=== PATIENT | female | born 1990 | race Caucasian/White ===

== ENCOUNTER → 2018-06-06 | Outpatient (CLI) | payer OTHER ==
[2018-06-06 10:21] VITALS: BP 143/85; PULSE 83; TEMP 97.6; BMI 41.8
--- NOTE | 2018-06-06 13:47 | P.HPOB ---
History of Present Illness H&P Date: 06/06/18 Chief Complaint: The patient is here for her routine gynecologic exam. This is a 27-year-old G0 with an LMP of 05/08/2018. The patient is here to establish with this office. She states that it's been about 2 years since her last pelvic exam. She is here with her boyfriend, Hayes. They are contemplating attempting in the future. Currently they have been using abstinence and withdrawal to prevent . She states her menses are regular every month lasting 5 days with 3 days of heavier flow. On the heavier days she has to change your protection up to every one to one and half hours. 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 She is otherwise without complaints. Review of Systems She states her weight can fluctuate by 5 or 10 pounds. About 4 years ago she lost 20 pounds intentionally. She denies respiratory, cardiac, or G.I. problems. Past Medical History Past Medical History: Asthma, GERD/Reflux, Hypertension, Thyroid Disorder ( Hypothyroid) Additional Past Medical History / Comment(s): Depression, IBS, and overweight. 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 She has completed her HPV vaccination series. History of Any Multi-Drug Resistant Organisms: None Reported Past Surgical History: No Surgical Hx Reported Additional Past Surgical History / Comment(s): [place] teeth removed, tubes replaced in her years as a child. Past Psychological History: Depression Smoking Status: Never smoker Past Alcohol Use History: Abuse (Previous abuse and she quit drinking alcohol in 2013) Past Drug Use History: Cocaine (Brief use in past), Heroin (Previously snorted heroin, never IV use. She has been off since 2013.), Marijuana (Brief use in the past), Opiates (Off since 2013.), Prescription Drug Abuse (Off since 2013.) Additional History: She is engaged and has been with her fianc since 2012. She lives with him. 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 She states she has been clean from drug and alcohol use since 2013. - Past Family History Father Family Medical History: Hypertension Additional Family Medical History / Comment(s): Depression and Crohn's disease. Mother Family Medical History: Diabetes Mellitus, Hypertension Additional Family Medical History / Comment(s): Maternal grandmother breast cancer. Medications and Allergies Home Medications Medication Instructions Recorded Confirmed Type Dicyclomine [Bentyl] PO DAILY 06/06/18 History Labetalol [Trandate] PO DAILY 06/06/18 History Levothyroxine Sodium [Synthroid] PO DAILY 06/06/18 History Omeprazole PO DAILY 06/06/18 History buPROPion XL [Wellbutrin XL] PO DAILY 06/06/18 History Allergies Allergy/AdvReac Type Severity Reaction Status Date / Time No Known Allergies Allergy Unverified 06/06/18 10:16 Exam Vital Signs Temp Pulse BP 06/06/18 10:19 97.6 F 83 143/85 Intake and Output 06/05/18 06/06/18 06/06/18 22:59 06:59 14:59 Other: Weight 107.048 kg Height 5'3", BMI 41.8 This is a well-developed well-nourished heavyset white female who is alert and oriented times 3 in no acute distress. HEENT: Within normal limits. NECK: Supple without mass or thyromegaly. CHEST AND LUNGS: Clear to auscultation. HEART: Regular rate and rhythm. BREASTS: Are without mass or discharge. AXILLARY EXAM: Negative for adenopathy. BACK: Negative for CVA tenderness. ABDOMEN: Soft, obese, nontender, without palpable masses. PELVIC EXAM: Normal external genitalia. Cervix and vagina appear normal. There is no unusual discharge. There is no evidence of prolapse. The uterus is midposition, nongravid size and nontender. There are no palpable adnexal masses or tenderness. RECTAL EXAM: deferred. EXTREMITIES: Nontender. IMPRESSION: 1. 27-year-old female with normal gynecologic exam. They are using abstinence and withdrawal for control. 2. On the plating attempting in the future. 3. Multiple medical problems including chronic hypertension, overweight, hypothyroidism and depression. PLAN: 1. Pap smear was performed. 2. Self breast awareness was discussed with the patient. 3. GC and Chlamydia screening were obtained from the cervix. 4. STD testing will also be done with bloodwork including HIV, RPR, hepatitis B surface antigen, and hepatitis C antibody. STD prevention was discussed. 5. We have had a long discussion regarding preconception planning. She understands that she does have several risk factors for problems including being overweight and her chronic hypertension. I recommended that she tried very hard to lose weight sensibly. We discussed the importance of good nutrition and regular exercise. If she is successful in losing weight, she can also see if she can decrease or possibly get off of blood pressure medication. She understands that she should not change or discontinue her medications on her own, but with the aid of her primary care physician. I have recommended that she tried to minimize the medication she is on by discussing her medications with her primary care physician. She understands that she will be at a greater risk for hypertension problems with including preeclampsia. 6. I recommended that she start taking a daily multivitamin with folic acid right away. 7. The ACOG handout on preconception planning, [id number], was given to the patient. 8. We also had a long discussion regarding the importance of staying off of drugs since she has had a history of substance abuse. 9. We also discussed the option of seeing a high-risk OB specialist prior to to further discuss possible risks with . 10. She will return in one year, or sooner if problems, or if .
[2018-06-06 16:59] LABS: HIV 1 AB Non-Reactive (Non-Reactive); HIV AB P24 Non-Reactive (Non-Reactive); HIV P24 AG Non-Reactive (Non-Reactive)
[2018-06-06 17:12] LABS: Hepatitis C IgG Antibody Non-Reactive (Non-Reactive)
[2018-06-08 07:23] LABS: C. trachomatis,PCR Negative (Neg,Equiv); Chlamydia trachomatis Source Cervix; N. gonorrhoeae,PCR Negative (Neg,Equiv); Neisseria Source Cervix
== END | disposition home or self-care (01) ==
LOC: WWCWWP 09:49
PROVIDERS: ATTEND Obstetrics & Gynecology
DX: Z11.3 Encounter for screening for infections with a predominantly sexual mode of transmission (principal)
CPT/HCPCS: 86780; 86803; 87340; 87390; 87491; 87591

== ENCOUNTER → 2019-08-21 | Outpatient (CLI) | payer OTHER ==
[2019-08-21 09:48] VITALS: BP 136/93; PULSE 89; RESP 16; TEMP 98.7
--- NOTE | 2019-08-21 10:19 | P.HPOB ---
History of Present Illness H&P Date: 08/21/19 Chief Complaint: The patient is here for her routine gynecologic exam. This is a 28-year-old G0 with an LMP of 07/29/2019. The patient continues to use withdrawal and periodic abstinence to prevent . She again is declining anything for control. She is without gynecologic complaints. Her menses are regular every month. She is contemplating attempting in the future, but probably not in the upcoming year. Review of Systems The patient has gained about 9 pounds over the last year. She denies respiratory or cardiac problems. GI: Occasional gastric reflux symptoms. Past Medical History Past Medical History: Asthma, GERD/Reflux, Hypertension, Thyroid Disorder Additional Past Medical History / Comment(s): Hypothyroidism. Depression, IBS, and overweight. 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 She has completed her HPV vaccination series. History of Any Multi-Drug Resistant Organisms: None Reported Past Surgical History: No Surgical Hx Reported Additional Past Surgical History / Comment(s): [place] teeth removed, tubes replaced in her years as a child. Past Psychological History: Depression Additional Psychological History / Comment(s): former alcoholic and drug user Smoking Status: Never smoker Past Alcohol Use History: Abuse Additional Past Alcohol Use History / Comment(s): History of alcohol abuse in the past. She quit drinking in 2013 Past Drug Use History: Cocaine, Heroin, Marijuana, Opiates, Prescription Drug Abuse Additional Drug Use History / Comment(s): History of multiple drug use in the past and has been off all street drugs since 2013. Additional History: She is engaged and has been with her fianc since 2012. She may get in 11/14/2019. They live together. 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 - Past Family History Father Family Medical History: Hypertension Additional Family Medical History / Comment(s): Depression and Crohn's disease. Mother Family Medical History: Diabetes Mellitus, Hypertension Additional Family Medical History / Comment(s): Maternal grandmother breast cancer. Medications and Allergies Home Medications Medication Instructions Recorded Confirmed Type Labetalol [Trandate] 50 mg PO DAILY 06/06/18 08/21/19 History Levothyroxine Sodium [Synthroid] 0.025 mg PO DAILY 06/06/18 08/21/19 History buPROPion XL [Wellbutrin XL] 300 mg PO DAILY 06/06/18 08/21/19 History Albuterol Inhaler [Ventolin Hfa 1 - 2 puff INHALATION RT-Q6H PRN 08/21/19 08/21/19 History Inhaler] Ergocalciferol [Vitamin D2] 50,000 unit PO Q7D 08/21/19 08/21/19 History Formula 303 2 tab PO DAILY 08/21/19 08/21/19 History L.acidoph,Paracasei, B.lactis 1 each PO DAILY 08/21/19 08/21/19 History [Probiotic] Multivitamin [Multivitamins Adult 1 each PO DAILY 08/21/19 08/21/19 History Gummies] Allergies Allergy/AdvReac Type Severity Reaction Status Date / Time No Known Allergies Allergy Unverified 08/21/19 09:38 Exam Vital Signs Temp Pulse Resp BP Pulse Ox 08/21/19 09:45 98.7 F 89 16 136/93 96 Intake and Output 08/20/19 08/21/19 08/21/19 22:59 06:59 14:59 Other: Weight 111.584 kg Height 5 feet 6 inches, weight 246 pounds, BMI 39.7. This is a well-developed well-nourished heavyset white female who is alert and oriented times 3 in no acute distress. HEENT: Within normal limits. NECK: Supple without mass or thyromegaly. CHEST AND LUNGS: Clear to auscultation. HEART: Regular rate and rhythm. BREASTS: Are without mass or discharge. AXILLARY EXAM: Negative for adenopathy. BACK: Negative for CVA tenderness. ABDOMEN: Soft, obese, nontender, without palpable masses. PELVIC EXAM: Normal external genitalia. Cervix and vagina appear normal. There is no unusual discharge. There is no evidence of prolapse. The uterus is midposition, nongravid size and nontender. There are no palpable adnexal masses or tenderness. RECTAL EXAM: Deferred EXTREMITIES: Nontender. IMPRESSION: 1. 28-year-old female with normal gynecologic exam. 2. Contemplating attempting in the future, but does not believe she will actively attempt in the next year. PLAN: 1. Pap smear was deferred since she had a negative one on 06/06/2018. 2. Self breast awareness was discussed with the patient. 3. She will continue to take a multivitamin with folic acid. She will also keep a menstrual calendar. I have recommended that she try to establish with an mechanical commissioning engineer prior to for preconception planning and to discuss the medications that she is on 4. She was advised to return in one year for her annual well woman exam.
== END | disposition home or self-care (01) ==
LOC: WWCWWP 09:31
PROVIDERS: ATTEND Obstetrics & Gynecology
DX: Z53.9 Procedure and treatment not carried out, unspecified reason (principal)

== ENCOUNTER 2020-12-09 13:04 | Inpatient (IN) | payer OTHER ==
[2020-12-09] MEDS ORDERED: LACTATED RINGERS 1,000 ML IV SCH (14:15)
[2020-12-09] MEDS ORDERED: LIDOCAINE 0.5% (PF) 5 MG/ML (50 ML SDV) SQ PRN (14:15)
[2020-12-09] MEDS ORDERED: METHYLERGONOVINE 0.2 MG/ML 1 ML AMP IM PRN (14:15)
[2020-12-09] MEDS ORDERED: OXYTOCIN 10 UNIT/ML 1 ML VIAL IM PRN (14:15)
[2020-12-09] MEDS ORDERED: CARBOPROST TROMETHAMINE 250 MCG/ML 1 ML AMP IM PRN (14:15)
[2020-12-09] MEDS ORDERED: TERBUTALINE 1 MG/ML VIAL SQ PRN (14:15)
[2020-12-09] MEDS: LACTATED RINGERS 1,000 ML IV SCH ×2 (14:20→21:50)
[2020-12-09] MEDS: OXYTOCIN 30 UNITS/500 ML NS 30 UNIT in SALINE 1 500ML.BAG IV SCH ×2 (14:30→23:16)
[2020-12-09 14:39] LABS: Basophils % (A) 0 %; Eosinophils # (A) 0.2 k/uL (0-0.7); Eosinophils % (A) 1 %; HCT 41.7 % (34.0-46.0); HGB 13.9 gm/dL (11.4-16.0); Lymphocytes # (A) 2.3 k/uL (1.0-4.8); Lymphocytes % (A) 16 %; MCH 29.2 pg (25.0-35.0); MCHC 33.3 g/dL (31.0-37.0); MCV 87.8 fL (80.0-100.0); Mean Platelet Volume 8.9; Monocytes # (A) 0.6 k/uL (0-1.0); Monocytes % (A) 4 %; Neutrophils # (A) 10.9 k/uL (1.3-7.7); Neutrophils % (A) 77 %; Platelet Count 206 k/uL (150-450); RBC 4.75 m/uL (3.80-5.40); RDW 14.6 % (11.5-15.5)
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
[2020-12-09] MEDS ORDERED: ceFAZolin 3 GM in SODIUM CHLORIDE 0.9% 100 ML IVPB ONE (21:40)
[2020-12-09] MEDS ORDERED: CITRIC ACID-SODIUM CITRATE 15 ML CUP PO ONE (21:40)
[2020-12-09] MEDS ORDERED: PHENYLEPHRINE-0.9% NACL SYG 1,000 MCG/10 ML SYRINGE ONE (22:04)
[2020-12-09] MEDS ORDERED: MORPHINE SULFATE (PF) 0.3 MG/0.3 ML SYR ONE (22:04)
[2020-12-09] MEDS ORDERED: OXYTOCIN 10 UNIT/ML 1 ML VIAL ONE (22:04)
[2020-12-09] MEDS ORDERED: ONDANSETRON 4 MG/2 ML VIAL ONE (22:04)
[2020-12-09] MEDS ORDERED: KETOROLAC 15 MG/ML 1 ML VIAL ONE (22:04)
[2020-12-09] MEDS ORDERED: DEXAMETHASONE SOD PHOSPHATE 10 MG/ML 1 ML VIAL ONE (22:04)
[2020-12-09] MEDS ORDERED: KETOROLAC 15 MG/ML 1 ML VIAL IVP PRN (22:32)
[2020-12-09] MEDS ORDERED: NALOXONE 0.4 MG/ML 1 ML VIAL IV PRN ×2 (22:32→22:58)
[2020-12-09] MEDS ORDERED: ONDANSETRON 4 MG/2 ML VIAL IVP PRN (22:32)
[2020-12-09] MEDS ORDERED: diphenhydrAMINE 50 MG/ML 1 ML VIAL IVP PRN ×3 (22:32→22:58)
[2020-12-09] MEDS ORDERED: ZOLPIDEM 5 MG TAB PO PRN (22:58)
[2020-12-09] MEDS ORDERED: SIMETHICONE 80 MG CHEWABLE PO PRN (22:58)
[2020-12-09] MEDS ORDERED: METOCLOPRAMIDE 5 MG/ML 2 ML VIAL IVP PRN (22:58)
[2020-12-09] MEDS ORDERED: diphenhydrAMINE 50 MG CAP PO PRN (22:58)
[2020-12-09] MEDS ORDERED: diphenhydrAMINE 25 MG CAP PO PRN (22:58)
--- NOTE | 2020-12-09 22:58 | P.OP ---
Date of Procedure: 12/09/20 Preoperative Diagnosis: 38-5/7 weeks intrauterine , arrest of dilatation and descent Postoperative Diagnosis: Liveborn male , occiput posterior position Procedure(s) Performed: Primary low transverse section Anesthesia: spinal Surgeon: Shanelle Phillips Retail Associate #1: Haroon Drew Estimated Blood Loss (ml): 300 IV fluids (ml): 1,000 Urine output (ml): 100 Pathology: other (Placenta) Condition: stable Disposition: PACU Operative Findings: Liveborn male , occiput posterior, Apgars 8 and 9 at one and 5 minutes respectively Description of Procedure: Patient was brought to the operating suite after diagnosis of arrest of dilatation and descent was given. Oxytocin running at 23 milliunits, uterine contractions every 2-3 minutes apart for multiple hours. No dilatation past 3-4 cm. Decision was made to proceed with . 3 g of Ancef were given. Patient is brought back to the operating suite and a spinal with Duramorph is placed without difficulty. She is put in the dorsal supine position with left lateral uterine displacement. Ewing catheter to direct drainage, vaginal prep performed. Abdomen is prepped and draped in usual sterile fashion. Analgesia is checked and noted to be adequate. A low transverse skin incision is made in this is carried down through the subcutaneous tissue which is approximately 8 cm in depth. Fascia is isolated, scored, extended bilaterally with curved Sumner scissors. Peritoneum is incised, no bowel or bladder involvement is noted. The disposable ring retractors placed inside the abdomen now and secured for good visualization. A low transverse uterine incision is made in this is carried down through the myometrium. It is extended with blunt dissection. Infant's head is delivered in the occiput posterior position. There is no nuchal cord noted. Oropharynx, nasopharynx, and external nares were all bulb suctioned. Patient is officially delivered of a liveborn male infant at 2225 hours. Umbilical cord is doubly clamped and ligated, he is handed to waiting nurses for evaluation where scores of 8 and 9 at one and 5 minutes respectively are given. Placentas delivered spontaneously, it is inspected and noted to be intact with trivascular cord at 2226 hours. Uterus is then externalized and massaged. It is swept clean with a sterile sponge to avoid any retained products of conception. Uterus is closed in a two-step fashion. First layer is running locking with 0 Vicryl suture. Second layer is imbricated with 0 Vicryl suture. Ovaries and tubes appear normal to inspection. Uterus is gently placed back into the abdominal cavity. Bilateral gutters are inspected and cleaned. Ewing is known to be draining clear fluid. Peritoneum is allowed to close by secondary inte ntion. Fascia is closed in a running stitch of 0 Vicryl with over ligation in the midline. Subcutaneous tissue is irrigated, is clean and dry. Reapproximation with 2-0 Vicryl in a running fashion. 4-0 undyed Monocryl is used for final skin closure. All sponge needle and enhancement counts are correct. Patient is brought back to the recovery room in very good condition. Blood pressure 128/64, pulse 70. Steri-Strips and Mastisol are applied to the wound and a dressing is also placed. Patient is requesting circumcision for her son.
[2020-12-10] MEDS: SENNOSIDES-DOCUSATE SODIUM 1 EACH TAB PO SCH ×2 (07:33→20:42)
--- NOTE | 2020-12-10 07:37 | P.PN ---
Subjective Progress Note Date: 12/10/20 Principal diagnosis: Postoperative day #1 Slept well. No pain. Requesting circumcision. Positive flatus. Objective - Vital Signs Vital signs: Vital Signs Temp 98.4 F 12/10/20 04:00 Pulse 70 12/10/20 04:00 Resp 16 12/10/20 05:00 BP 115/74 12/10/20 04:00 Pulse Ox 98 12/09/20 23:32 Intake & Output 12/09/20 12/10/20 12/10/20 18:59 06:59 18:59 Intake Total 2008.767 Output Total 600 Balance 1408.767 Weight 117.934 kg Intake: IV 2000 Intake, IV Titration 8.767 Amount Oxytocin 30 Units/500 ml 8.767 Ns 30 unit In Saline 1 500ml.bag @ Per Protocol IV .Q0M [facility] Rx#:[id number] Output: Urine 600 Other: Voiding Method Indwelling Catheter # Voids 3 - Constitutional General appearance: Present: cooperative, morbidly obese - EENT Eyes: Present: PERRLA ENT: Present: hearing grossly normal - Respiratory Respiratory: bilateral: CTA - Cardiovascular Rhythm: regular - Gastrointestinal General gastrointestinal: Present: normal bowel sounds - Genitourinary Genitourinary Comment(s): Incision clean and dry, intact, Steri-Strips applied. - Neurologic Neurologic: Present: CNII-XII intact - Musculoskeletal Musculoskeletal: Present: gait normal - Psychiatric Psychiatric: Present: A&O x's 3, appropriate affect, intact judgment & insight - Labs CBC & Chem 7: 12/09/20 14:35 Labs: Abnormal Lab Results - Last 24 Hours (Table) 12/09/20 Range/Units 14:35 WBC 14.0 H (3.8-10.6) k/uL Neutrophils # 10.9 H (1.3-7.7) k/uL Assessment and Plan Assessment: Doing well postoperative day #1 Plan: Continue postoperative care. Her pressure slightly high, patient refusing blood pressure medication as she has through the . Circumcision now. Likely discharge home tomorrow. Time with Patient: Less than 30
--- NOTE | 2020-12-10 08:37 | P.PN ---
Progress Note - Text Progress Note Date: 12/10/20 (633) Anesthesia Postop day 1 Subjective: Status Post section with Duramorph. Patient seen and examined. Doing well without complaint. VAS 2 out of 10. Mild pruritustolerable. No nausea vomiting. . Gross lower extremity strength intact. Positive ambulation. Without apparent anesthetic complications. Objective: Vital signs reviewed Heart: Regular Rate Lungs: Good chest excursion Abdomen: Appears nondistended Assessment: Status post with Duramorph postop day 1 Plan: Continue current care with your medical management.
[2020-12-10 08:52] LABS: Basophils % (A) 0 %; Eosinophils # (A) 0.1 k/uL (0-0.7); Eosinophils % (A) 0 %; HCT 39.3 % (34.0-46.0); HGB 12.7 gm/dL (11.4-16.0); Lymphocytes % (A) 9 %; MCH 29.1 pg (25.0-35.0); MCHC 32.3 g/dL (31.0-37.0); MCV 90.4 fL (80.0-100.0); Mean Platelet Volume 9.2; Monocytes # (A) 0.9 k/uL (0-1.0); Monocytes % (A) 4 %; Neutrophils # (A) 18.2 k/uL (1.3-7.7); Neutrophils % (A) 86 %; Platelet Count 198 k/uL (150-450); RBC 4.35 m/uL (3.80-5.40); RDW 14.2 % (11.5-15.5); WBC 21.2 k/uL (3.8-10.6)
[2020-12-10] MEDS: LACTATED RINGERS 1,000 ML IV SCH ×2 (13:40→13:42)
[2020-12-10] MEDS: ACETAMINOPHEN TAB 500 MG TAB PO SCH ×3 (13:41→20:41)
[2020-12-10] MEDS: IBUPROFEN 600 MG TAB PO SCH ×2 (13:42→17:33)
[2020-12-10 21:27] VITALS: RESP 16
[2020-12-11] MEDS: IBUPROFEN 600 MG TAB PO SCH ×2 (01:24→04:40)
[2020-12-11] MEDS: ACETAMINOPHEN TAB 500 MG TAB PO SCH ×2 (03:34→06:03)
[2020-12-11 03:43] VITALS: BP 144/78; PULSE 93; TEMP 98.2
--- NOTE | 2020-12-11 07:43 | P.DS ---
Providers Date of admission: 12/09/20 13:55 Expected date of discharge: 12/11/20 Attending physician: Shanelle Phillips Primary care physician: Stated None Hospital Course: This is a 30-year-old white female 1 para 0 EDC 12/18/2020 who presented at 38-5/7 weeks with spontaneous amniorrhexis from home, clear fluid. Blood type is A+, rubella status nonimmune. Please see dictated history and physical for details. Patient progressed through labor but had arrest of dilatation and descent. She underwent a primary low transverse section, infant was occiput posterior, weight 3330 g or 7 lbs. 5 oz. Patient did well intraoperatively with an estimated blood loss 300 mL's. Please see dictated operative note for details. This morning the patient is doing well. She is voiding, ambulating, having minimal pain. She is tolerating regular diet. The incision is clean and dry, intact, with Steri-Strips applied. Extremities reveal mild edema. Breasts are not engorged. Breast-feeding is going well. She has no complaints and is judged to be in very good condition for discharge home. Patient will follow-up in the office with me in 2 weeks for incision check. She is reminded no tampons, intercourse or douching. She will use [id number] Advil or Aleve, or Motrin as needed for pain. She will call with any fevers shakes or chills, foul smelling or copious lochia, with the passage of large blood clots, with any pain not alleviated by [id number] products, or indeed with any concerns. Blood pressure today is 130 over 70s. Again patient is declining antihypertensive medications. Assessment: Doing well day number two Patient Condition at Discharge: Good Plan - Discharge Summary Discharge Rx Participant: No New Discharge Prescriptions: No Action Formula 303 2 tab PO DAILY Albuterol Inhaler (Mhu) [Ventolin Hfa Inhaler] 1 - 2 puff INHALATION RT-Q6H PRN PRN Reason: Bronchodilation Ubidecarenone [Co Q-10] 300 mg PO DAILY Pnv,Calcium 72/Iron/Folic Acid [ Plus Tablet] 1 each PO DAILY Aspirin [[place] Aspirin EC] 81 mg PO DAILY Discharge Medication List Albuterol Inhaler (Mhu) [Ventolin Hfa Inhaler] 1 - 2 puff INHALATION RT-Q6H PRN 08/21/19 [History] Formula 303 2 tab PO DAILY 08/21/19 [History] Aspirin [[place] Aspirin EC] 81 mg PO DAILY 12/09/20 [History] Pnv,Calcium 72/Iron/Folic Acid [ Plus Tablet] 1 each PO DAILY 12/09/20 [History] Ubidecarenone [Co Q-10] 300 mg PO DAILY 12/09/20 [History] Follow up Appointment(s)/Referral(s): Shanelle Phillips MD [STAFF PHYSICIAN] - 2 Weeks Discharge Disposition: HOME SELF-CARE
[2020-12-11] MEDS: SENNOSIDES-DOCUSATE SODIUM 1 EACH TAB PO SCH (08:08)
--- NOTE | 2020-12-11 09:15 | P.MSEPDOC ---
Presenting Problems - Arrival Data Date of Arrival on Unit: 12/09/20 Time of Arrival on Unit: 13:30 Mode of Transport: Wheelchair - Complaint OB-Reason for Admission/Chief Complaint: Rule Out SROM Comment: pt had SROM at 1000 today Medical History - Information : 1 Para: 0 Term: 0 : 0 Abortions: Spontaneous or Elective: 0 Number of Living Children: 0 - Gestational Age Gestational Age by LILIANA (wks/days): 38 Weeks and 5 Days Review of Systems - Review of Systems Constitutional: No problems Breast: No problems ENT: No problems Cardiovascular: No problems Respiratory: No problems Gastrointestinal: No problems Genitourinary: No problems Musculoskeletal: No problems Neurological: No problems Skin: No problems Vital Signs - Temperature Temperature: 98.2 F Temperature Source: Oral - Pulse Right Brachial Pulse Rate: 93 Pulse Assessment Method: Pulse Oximetry - Respirations Respiratory Rate: 16 Oxygen Delivery Method: Room Air O2 Sat by Pulse Oximetry: 97 - Blood Pressure Right Arm Blood Pressure: 144/78 Blood Pressure Mean: 100 Blood Pressure Source: Automatic Cuff Medical Screen Scoring (Pre) - Cervical Exam Dilation: 1-3 cm = 1 Effacement: More than 50% = 2 Membranes: Ruptured = 3 - Uterine Contractions Frequency: > 5 minutes apart = 1 Duration: N/A Intensity: N/A - Maternal Vital Signs Maternal Temperature: N/A Maternal Blood Pressure: N/A Signs of Preeclampsia: N/A Maternal Respirations: N/A - Maternal Trauma Maternal Trauma: N/A - Assessment - Baby A Baseline FHR: 130 Heart Rate - NICHD Category: Category I (Normal) = 0 NST: Reactive Position: N/A Station: N/A - Total Score - Baby A Total Score - Baby A: 7 - Total Score - Baby B Total Score - Baby B: 7 - Total Score - Baby C Total Score - Baby C: 7 - Level of Risk - Baby A Level of Risk - Baby A: Medium (6-9) - Level of Risk - Baby B Level of Risk - Baby B: Medium (6-9) - Level of Risk - Baby C Level of Risk - Baby C: Medium (6-9) Physician Notification (Pre) - Physician Notified Physician Notified Date: 12/09/20 Physician Notified Time: 14:04 New Order Received: Yes - Notification Comment Comment: admit pt for labor Disposition - Disposition OB Disposition: Admit, LDRP Suite I agree with the RN Medical Screening Exam: Yes Case reviewed; plan agreed upon as documented in EMR&OBIX.: Yes Diagnosis: LOUSE-BORNE TYPHUS
== END 2020-12-11 13:45 | disposition home or self-care (01) | DRG 787 ==
LOC: FBPOP 13:04 → 4FBP 13:55
PROVIDERS: ADMIT Obstetrics & Gynecology; ATTEND Obstetrics & Gynecology
PROC: 10D00Z1 Extraction of Products of Conception, Low, Open Approach (ICD-10-PCS; principal; 2020-12-09 21:50)
DX: O62.0 Primary inadequate contractions (principal); O10.92 Unspecified pre-existing hypertension complicating childbirth; Z3A.38 38 weeks gestation of pregnancy; Z37.0 Single live birth; F11.21 Opioid dependence, in remission; O99.284 Endocrine, nutritional and metabolic diseases complicating childbirth; E03.9 Hypothyroidism, unspecified; O99.344 Other mental disorders complicating childbirth; F41.9 Anxiety disorder, unspecified; O64.0XX0 Obstructed labor due to incomplete rotation of fetal head, not applicable or unspecified; J45.909 Unspecified asthma, uncomplicated; O99.52 Diseases of the respiratory system complicating childbirth; Z79.82 Long term (current) use of aspirin; Z80.3 Family history of malignant neoplasm of breast; Z81.8 Family history of other mental and behavioral disorders; Z82.49 Family history of ischemic heart disease and other diseases of the circulatory system; Z83.3 Family history of diabetes mellitus; L29.9 Pruritus, unspecified
CPT/HCPCS: 59025; 84112; 85025; 86850; 86900; 86901; 88307; 99213

== ENCOUNTER → 2023-04-07 | Outpatient (CLI) | payer OTHER | END | disposition home or self-care (01) | LOC: LABWHC1 14:14 | PROVIDERS: ATTEND Obstetrics & Gynecology | DX: O20.0 Threatened abortion (principal); Z3A.00 Weeks of gestation of pregnancy not specified | CPT/HCPCS: 36415; 84702 ==

== ENCOUNTER 2025-02-06 22:58 | Outpatient (CLI) | payer OTHER ==
[2025-02-07 01:17] VITALS: BP 146/72; PULSE 103; RESP 18; TEMP 96.2
== END 2025-02-06 23:23 | disposition home or self-care (01) ==
LOC: FBPOP 22:58
PROVIDERS: ATTEND Obstetrics & Gynecology
DX: Z53.9 Procedure and treatment not carried out, unspecified reason (principal)
CPT/HCPCS: 59025; 84112; G0463; 99213